=== PATIENT | male | born 1985 | race Caucasian/White ===

== ENCOUNTER 2016-12-22 15:15 | Emergency (ER) | payer SELFPAY ==
[~2016-12-22 15:15] MED LIST: ATIVAN0.5 MG PO; DOXYCYCLINE PO; LEXAPRO20 M1 PO; OMEPRAZOLE40 M2 PO; PEN-VEE K500 MG PO; WELLBUTRIN100 M1 PO
[2016-12-22] MEDS ORDERED: MIRTAZAPINE30 M2 PO (15:51)
[2016-12-22] MEDS ORDERED: LAMICTAL25 M2 PO (15:53)
[2016-12-22] MEDS ORDERED: AUGMENTIN 875-1 EAC2 PO (17:00)
[2016-12-22] MEDS ORDERED: NORCO 5-325 TA1 EACH PO (17:00)
== END 2016-12-22 17:18 ==
LOC: EDMED 15:15
PROC: 0H96XZZ Drainage of Back Skin, External Approach (ICD-10-PCS; principal; 2016-12-22)
DX: L05.01 Pilonidal cyst with abscess (principal); J45.909 Unspecified asthma, uncomplicated; F17.200 Nicotine dependence, unspecified, uncomplicated